=== PATIENT | female | born 1975 | race Caucasian/White ===

== ENCOUNTER → 2018-05-07 | Outpatient (CLI) | payer OTHER ==
[~2018-05-07] MED LIST: CHOL10005 PO; HYDR25CA83 PO; LEVO50TA80 PO
--- NOTE | 2018-05-07 14:57 | RADIOLOGY IMAGING REPORT ---
FACILITY: [facility] PATIENT NAME: Rachel Amanda : 1975 MR: [id number] V: [id number] EXAM DATE: ORDERING PHYSICIAN: RICO TERRY TECHNOLOGIST: Location: [facility] [place] Patient: Rachel Amanda : 1975 Visit/Account:[id number] Date of Sevice: 05/07/2018 EXAMINATION: Left knee series, 3 views 05/07/2018 1:00 PM HISTORY: Knee pain COMPARISON: None FINDINGS: Visualized bony structures are intact and anatomically aligned without fracture or other a cute osseous abnormality evident. IMPRESSION: Negative exam. Report Dictated By: Gigi Shah MD at 05/07/2018 2:53 PM Report E-Signed By: Gigi Shah MD at 05/07/2018 2:53 PM WSN:[id number]
== END ==
LOC: RAD 12:55
PROVIDERS: ATTEND Family Medicine
DX: M25.562 Pain in left knee (principal)